=== PATIENT | female | born 1960 | race Caucasian/White ===

== ENCOUNTER → 2016-10-24 | Outpatient (CLI) | payer BC ==
[~2016-10-24] MED LIST: ATIVAN 0.50.5 MG/TAB PO; CELEBREX 200MG200 MG PO; MONODOX100 PO; NAPROSYN25 MG/ML PO; WELLBUTRIN XL150 MG PO
== END ==
LOC: MC.RAD 10-21 07:00
DX: Z12.31 Encounter for screening mammogram for malignant neoplasm of breast (principal)

== ENCOUNTER → 2016-10-25 | Outpatient (CLI) | payer BC | LOC: MC.RAD 13:16 | DX: Z12.39 Encounter for other screening for malignant neoplasm of breast (principal) ==

== ENCOUNTER → 2017-12-22 | Outpatient (CLI) | payer BC | LOC: COL.RAD 07:45 | DX: R10.12 Left upper quadrant pain (principal) | CPT/HCPCS: Q9967 ==

== ENCOUNTER → 2018-02-09 | Outpatient (CLI) | payer BC | LOC: MC.RAD 11:00 | DX: Z12.31 Encounter for screening mammogram for malignant neoplasm of breast (principal) ==

== ENCOUNTER → 2019-10-28 | Outpatient (CLI) | payer BC | LOC: MC.RAD 15:00 | DX: Z12.31 Encounter for screening mammogram for malignant neoplasm of breast (principal) ==

== ENCOUNTER → 2020-02-28 | Outpatient (CLI) | payer BC | LOC: COL.RAD 10:00 | DX: R10.12 Left upper quadrant pain (principal); Z98.890 Other specified postprocedural states | CPT/HCPCS: Q9967 ==

== ENCOUNTER 2021-06-01 22:14 | Emergency (ER) | payer BC ==
[~2021-06-01] VITALS: Ht 162.6 cm; Wt 50.0 kg
[2021-06-01 22:46] LABS: BASO % 0.6 % (0.0-2.0); EOS # 0.1 K/mm3 (0.0-0.7); EOS % 2.8 % (0.0-4.0); GRAN # 2.1 K/mm3 (1.4-6.5); GRAN % 41.9 % (42.2-75.2); HEMATOCRIT 38.4 % (37.0-47.0); HEMOGLOBIN 13.2 g/dl (12.5-16.0); MEAN CELL VOLUME 90 fl (80.0-100.0); MEAN CORPUSCULAR HEMOGLOBIN 31 pg (27-31); MEAN CORPUSCULAR HGB CONC 34 g/dl (33.0-37.0); MEAN PLATELET VOLUME 9.7 fl (7.4-10.4); MONO # 0.7 K/mm3 (0.1-0.6); MONO % 13.5 % (1.7-9.3); PLATELET COUNT 256 K/mm3 (130-400); RED BLOOD COUNT 4.25 M/mm3 (4.10-5.30); REDCELL DISTRIBUTION WIDTH-CV 12.1 % (11.5-14.5)
[2021-06-01 22:57] LABS: INR 1.1 (0.8-3.0); PROTHROMBIN TIME 11.8 SECONDS (9.7-12.8)
[2021-06-01 23:00] LABS: PARTIAL THROMBOPLASTIN TIME 34.7 SECONDS (26.0-37.0)
[2021-06-01 23:04] LABS: ALANINE AMINOTRANSFERASE 40 U/L (0-55); ALKALINE PHOSPHATASE 99 U/L (40-150); ANION GAP 13 mmol/L (7-16); AST,SGOT 35 U/L (5-34); BILIRUBIN,TOTAL 0.2 mg/dL (0.2-1.2); BLOOD UREA NITROGEN 20 mg/dL (10-20); CALCIUM 9.3 mg/dL (8.4-10.2); CARBON DIOXIDE 25 mmol/L (22-29); CHLORIDE 104 mmol/L (98-107); CREATININE, serum 0.76 mg/dL (0.57-1.11); GLUCOSE 101 mg/dL (70-99); POTASSIUM 3.9 mmol/L (3.5-4.5); SODIUM 142 mmol/L (136-145)
[2021-06-01 23:16] LABS: TROPONIN-I < 0.010 ng/mL (0.00-0.033)
[2021-06-02 02:30] VITALS: BP 128/80; PULSE 57; TEMP 98.6
== END 2021-06-02 02:30 | disposition home or self-care (01) ==
LOC: COL.ER 22:14
PROVIDERS: Family Medicine
DX: R07.2 Precordial pain (principal); D70.9 Neutropenia, unspecified; R50.81 Fever presenting with conditions classified elsewhere; F41.9 Anxiety disorder, unspecified; Z79.899 Other long term (current) drug therapy